=== PATIENT | female | born 1955 | race Caucasian/White ===

== ENCOUNTER → 2021-03-03 13:10 | Outpatient (CLI) | payer MEDICARE, OTHER, SELFPAY ==
--- NOTE | 2021-03-03 | DI.RAD.S_ITS ---
PROCEDURE: FL UPPER GI W AIR INDICATIONS: dysphagia, unspecified COMPARISON: None. FINDINGS: KUB: Preprocedural storm sash maker film demonstrates a normal bowel gas pattern. No suspicious abdominal calcifications. Visualized solid organ contours appear normal. Bony structures appear unremarkable. Esophagus: Esophageal mucosa is normal on air-contrast views. 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 No strictures, extrinsic mass effects, or diverticula. Stomach: Large hiatal hernia. The stomach is normally distensible, with normal rugal fold thickness. No mucosal masses or ulcers. Pylorus and duodenal bulb appear normal in morphology. Duodenal folds are normal in thickness as well. IMPRESSION: Large hiatal hernia Esophageal dysmotility Cricopharyngeal bar incidentally noted. Dictated by: Klaus Senior M.D. on 03/03/2021 at 14:32 Approved by: Klaus Senior M.D. on 03/03/2021 at 14:35
== END ==
PROVIDERS: Referring Provider Surgery; Visit Provider Surgery
DX: R13.10 Dysphagia, unspecified (principal); K44.9 Diaphragmatic hernia without obstruction or gangrene; K22.4 Dyskinesia of esophagus
CPT/HCPCS: 74246

== ENCOUNTER → 2024-12-02 09:20 | Outpatient (CLI) | payer MEDICARE, OTHER, SELFPAY ==
--- NOTE | 2024-12-02 | DI.US.S_ITS ---
US breast LT limited: 12/02/2024. BI-RADS: 2 CLINICAL: 68-year old female for left diagnostic breast ultrasound. Left nipple inversion was noted on the patient's exam today, and patient is unable to recall if new or old. Tyrer-Cuzick lifetime risk of 11.2%. Current reported family history of breast cancer: maternal grandmother and mother. The patient is status-post reduction mammoplasty. PRIOR EXAMS Same day mammogram, 08/07/2022, 07/05/2020, 07/04/2019, 04/12/2018, 04/05/2017. ULTRASOUND TECHNIQUE Real-time cowart scale and color doppler imaging of the area of clinical interest was performed with image documentation. Left targeted breast ultrasound of the area of clinical interest and the axilla was performed with image documentation. ULTRASOUND FINDINGS Left: Inner at 8:00, Retroareolar, 2.5 cm from nipple, measuring 0.5 x 0.4 x 0.5 cm: These images were erroneously annotated as located in the right breast by the industrial engineering technologist on the exam in PACS. There is an oil cyst present. This contains calcifications with comet tail artifact. This correlates to a stable benign oil cyst with rim calcifications on mammogram. Left: Central, Retroareolar: There is no suspicious sonographic finding to account for clinical concern of nipple symptoms. IMPRESSION: Left * No evidence of malignancy with benign findings. RECOMMENDATIONS Left: Central, Retroareolar * Annual screening mammography in one year. Left * Reported left nipple inversion is likely longstanding and benign, given unchanged appearance of the left nipple on mammogram dating back to 2017. Clinical follow up is recommended. OVERALL ASSESSMENT CATEGORY BI-RADS-2: Benign. ELECTRONICALLY SIGNED: Chel Newberry M.D. on 12/02/2024 at 04:08:19 PM PT Interpreting Station ID: [id number]
--- NOTE | 2024-12-02 09:23 | DI.MG.S_ITS ---
MM diagnostic mammo BI: 12/02/2024. BI-RADS: 0 CLINICAL: 68-year old female for bilateral diagnostic mammogram. Tyrer-Cuzick lifetime risk of 10.6%. Current reported family history of breast cancer: maternal grandmother and mother. The patient reports nipple abnormality (6 months) in the right breast - right nipple itching. On exam today, the technologist noted that the right nipple appears red and swollen. The left nipple is inverted, but the patient cannot recall if this is new or an old finding. The patient is status-post reduction mammoplasty. PRIOR EXAMS: 08/07/2022, 07/05/2020, 07/04/2019, 04/12/2018, 04/05/2017. MAMMOGRAPHY TECHNIQUE: 2D and 3D (tomosynthesis) digital mammographic views obtained, with additional images as needed for full coverage. Current study was also evaluated with a Computer Aided Detection (CAD) system. DENSITY B. There are scattered areas of fibroglandular density. MAMMOGRAPHY FINDINGS Right: MLO only, Central, In the nipple-areolar complex: Additional imaging evaluation needed. There is no imaging correlate to the reported symptom of nipple itching, swelling and redness. Left: MLO only, Central, In the nipple-areolar complex: Additional imaging evaluation needed. There is no imaging correlate to the reported symptom of nipple inversion. The left nipple appears unchanged on mammogram dating back to 2017. Bilateral: There are benign calcifications that are unchanged in number. There are no suspicious masses, microcalcifications, or architectural distortion. IMPRESSION: Right: MLO only, Central, In the nipple-areolar complex * Incomplete - Needs additional imaging evaluation. Left: MLO only, Central, In the nipple-areolar complex * Incomplete - Needs additional imaging evaluation. RECOMMENDATIONS Bilateral * Further evaluation with diagnostic ultrasound to be performed today. OVERALL ASSESSMENT CATEGORY BI-RADS-0: Incomplete - Need Additional Imaging Evaluation. ELECTRONICALLY SIGNED: Chel Newberry M.D. on 12/02/2024 at 12:05:41 PM PT Interpreting Station ID: [id number]
--- NOTE | 2024-12-02 09:23 | DI.RAD.S_ITS ---
PROCEDURE: XR DEXA AXIAL SKELETON INDICATIONS: breast complaint/ screening COMPARISON: None. FINDINGS: Lumbar Spine: Bone mineral density 0.852 g/cm2, T score -1.8. Left Femoral Neck: Bone mineral density 0.544 g/cm2, T score -2.7. Left Hip: Bone mineral density 0.648 g/cm2, T score -2.4. Fracture Risk Calculation (when applicable): 10-year fracture risk of a major osteoporotic fracture 24 percent and of a hip fracture 8.3 percent. (T score greater or equal to -1.0 to: NORMAL) (T score from -1.1 to -2.4: OSTEOPENIA) (T score less than or equal to -2.5: OSTEOPOROSIS) IMPRESSION: Osteoporosis---recommend repeat DEXA in 2 years or less for reassessment of response to treatment. Follow-up guidelines as follows: Osteoporosis: Consider a repeat DEXA and Vertebral Fracture Assessment (VFA) exam in 2 years or sooner if medically necessary, to reassess this patient's status. Osteopenia: Consider a repeat DEXA in 2-3 years to reassess this patient's status, or if there is a new clinical indication. Normal: Consider a repeat DEXA in 5 years or sooner, or if there is a new clinical indication. All treatment decisions require clinical judgment and consideration of individual patient factors, including patient preferences, comorbidities, previous drug use, risk factors not captured in the FRAX model (e.g., frailty, falls, vitamin D deficiency, increased bone turnover, interval significant decline in bone density ) and possible under- or over-estimation of fracture risk by FRAX. In addition, the NOF Guide recommends that FDA-approved medical therapies be considered in postmenopausal women and men age >= 50 years with a: * Hip or vertebral (clinical or morphometric) fracture * T-score of <=-2.5 at the spine or hip * Ten-year fracture probability by FRAX of >= 3% for hip fracture or >=20% for major osteoporotic fracture. Dictated by: He Ruiz M.D. on 12/03/2024 at 4:22 Approved by: He Ruiz M.D. on 12/03/2024 at 4:23
--- NOTE | 2024-12-02 09:24 | DI.US.S_ITS ---
US breast RT limited: 12/02/2024. BI-RADS: 1 CLINICAL: 68-year old female for right diagnostic breast ultrasound. Tyrer-Cuzick lifetime risk of 11.2%. Current reported family history of breast cancer: maternal grandmother and mother. The patient reports nipple abnormality (6 months) in the right breast. The patient is status-post reduction mammoplasty. PRIOR EXAMS Same day mammogram, 08/07/2022, 07/05/2020, 07/04/2019, 04/12/2018, 04/05/2017. ULTRASOUND TECHNIQUE Real-time cowart scale imaging of the area of clinical interest was performed with image documentation. TARGETED Right Breast Ultrasound: Real-time ultrasound exam was performed focused to area of clinical and/or imaging concern. ULTRASOUND FINDINGS Right: Central, Retroareolar: There is no suspicious sonographic finding to account for clinical concern of nipple symptoms. IMPRESSION: Right * No evidence of malignancy. RECOMMENDATIONS Right: Central, Retroareolar * Clinical followup with referring physician (If clinical symptoms persist or worsen, an MRI breast can be obtained for further evaluation). * Annual screening mammography in one year. OVERALL ASSESSMENT CATEGORY BI-RADS-1: Negative. ELECTRONICALLY SIGNED: Chel Newberry M.D. on 12/02/2024 at 04:06:10 PM PT Interpreting Station ID: [id number]
== END ==
PROVIDERS: PCP Registered Nurse; Referring Provider Registered Nurse; Visit Provider Registered Nurse
DX: R92.1 Mammographic calcification found on diagnostic imaging of breast (principal); Z80.3 Family history of malignant neoplasm of breast; N64.59 Other signs and symptoms in breast; Z13.820 Encounter for screening for osteoporosis; M81.0 Age-related osteoporosis without current pathological fracture; Z78.0 Asymptomatic menopausal state
CPT/HCPCS: 76642; 77066; 77080; G0279